=== PATIENT | male | born 1945 | race Two or more races ===

== ENCOUNTER 2019-02-10 00:37 | Emergency (ER) | payer MEDICARE, MEDICAID ==
[~2019-02-10] VITALS: Ht 167.6 cm; Wt 77.2 kg
[~2019-02-10 00:37] MED LIST: ASPI-496 PO; GABA600T7 PO; INSULIN; LINA5TAB PO; METF500T17 PO
[2019-02-10 00:41] VITALS: BP 187/89
--- NOTE | 2019-02-10 01:03 | NUR ---
THIS 73 YOM TRIPPED AND FELL WHILE WALKING DOWNTOWN W/ FAMILY. PT DENIES LOC, DENIES N/V.
[2019-02-10] MEDS ORDERED: DIPH,PERTUSS(ACELL),TET VAC/PF 0.5 ML IM-VACC ONE ×2 (01:29→01:30)
[2019-02-10] MEDS ORDERED: LIDOCAINE 1%-EPI 1:100K, 20ML ONE ×2 (01:29→01:48)
[2019-02-10] MEDS ORDERED: LIDOCAINE 1%-EPI 1:100K, 20ML INFIL ONE (01:30)
--- NOTE | 2019-02-10 01:32 | NUR ---
PT CURRENTLY IN CT
--- NOTE | 2019-02-10 02:17 | NUR ---
PT GIVEN TDAP VACCINE ORDERED. TECH AT BEDSIDE TO IRRIGATE WOUND. PT PROVIDED W/ WARM BLANKET.
[2019-02-10] MEDS ORDERED: NEOSPORIN OINT. PKT 1 PACKET ONE (02:54)
[2019-02-10] MEDS ORDERED: NEOSPORIN OINT. PKT 1 PACKET TP STA (03:00)
[2019-02-10] MEDS ORDERED: ACETAMINOPHEN 325 MG TABLET PO ONE (03:00)
== END 2019-02-10 03:11 | disposition home or self-care (01) ==
LOC: ED 02:55
DX: S01.111A Laceration without foreign body of right eyelid and periocular area, initial encounter (principal); S02.2XXA Fracture of nasal bones, initial encounter for closed fracture; S08.0XXA Avulsion of scalp, initial encounter; W01.0XXA Fall on same level from slipping, tripping and stumbling without subsequent striking against object, initial encounter; Y93.01 Activity, walking, marching and hiking; Y92.413 State road as the place of occurrence of the external cause; Y99.8 Other external cause status
CPT/HCPCS: 12053; 70450; 72125; 90471; 90715; 99285; J3490

== ENCOUNTER 2020-05-20 07:21 | Emergency (ER) | payer MEDICARE, MEDICAID ==
[~2020-05-20] VITALS: Ht 170.2 cm; Wt 75.0 kg
[2020-05-20] MEDS ORDERED: SODIUM CHLORIDE FLUSH 10ML SYR IVF ONE (08:00)
[2020-05-20 08:10] LABS: BASOPHILS % (AUTO) 1 % (0-1); EOSINOPHILS % (AUTO) 1 % (1-7); LYMPHOCYTES % (AUTO) 5 % (22-44); MEAN CORPUSCULAR HEMOGLOBIN 30.3 pg (27.5-34.5); MEAN CORPUSCULAR HGB CONC 32.6 g/dL (33.2-36.2); MEAN PLATELET VOLUME 8.5 fL (7.4-10.4); MONOCYTES % (AUTO) 7 % (2-9); NEUTROPHILS % (AUTO) 86 % (42-75); PLATELET COUNT 253 x10^3/uL (130-400); RED BLOOD COUNT 4.99 x10^6/uL (4.38-5.82); RED CELL DISTRIBUTION WIDTH 13.7 % (9.4-14.8)
[2020-05-20] MEDS ORDERED: LIDOCAINE 2%,20 ML JEL.PF.APP MM ONE (08:14)
[2020-05-20 08:19] LABS: ALBUMIN 3.9 g/dL (3.4-5.0); ANION GAP 6 mmol/L (5-15); CHLORIDE 109 mmol/L (98-107); CREATININE 1.01 mg/dL (0.7-1.3); INTERNATIONAL NORMALIZED RATIO 1.02 (0.93-1.1); PROTHROMBIN TIME 10.9 Seconds (9.6-11.5)
[2020-05-20 08:54] LABS: MICROSCOPIC INDICATED
--- NOTE | 2020-05-20 09:15 | NUR ---
SEE FOLY INSERTION NOTE. BLADDER IRRIGATION CONTINUES WITH PT TOLERATING WELL. NO CLOTS NOTED
--- NOTE | 2020-05-20 09:46 | NUR ---
RE-MANJINDER. URO TO BE PAGED. SON AT BEDSIDE.
[2020-05-20] MEDS ORDERED: OMNIPAQUE 350 MG/ML, 150 ML BOTTLE ONE (11:15)
--- NOTE | 2020-05-20 11:30 | NUR ---
PROVIDED LUNCH TRAY. BLADDER IRRIGATION CONTINUES
[2020-05-20 12:22] VITALS: BP 134/74
--- NOTE | 2020-05-20 13:16 | NUR ---
AFTER CATHETER REMOVED DISCHARGE PAPERS GIVEN. PT AMBULATED TO BATHROOM AND THEN TO DISCHARGE WINDOW.
[2020-05-21] MEDS ORDERED: GLIP5TAB10 PO (23:13)
[2020-05-21] MEDS ORDERED: ATOR10TA9 PO (23:13)
[2020-05-21] MEDS ORDERED: EMPA10TA PO (23:13)
[2020-05-27] MEDS ORDERED: DILT120C2 PO (13:24)
[2020-05-27] MEDS ORDERED: TAMS-11 PO (13:24)
[2020-05-27] MEDS ORDERED: CEPH-376 PO (13:24)
== END 2020-05-20 13:18 | disposition home or self-care (01) ==
LOC: ED 12:15
DX: R31.0 Gross hematuria (principal); R30.0 Dysuria; I10 Essential (primary) hypertension; E11.9 Type 2 diabetes mellitus without complications
CPT/HCPCS: 36415; 51702; 74178; 80048; 81001; 82040; 85025; 85610; 86850; 86900; 99285; Q9967

== ENCOUNTER 2020-05-31 09:32 | Emergency (ER) | payer MEDICARE, MEDICAID ==
[~2020-05-31] VITALS: Ht 170.2 cm; Wt 72.1 kg
[~2020-05-31 09:32] MED LIST changes: +ATOR10TA9 PO; +CEPH-376 PO; +DILT120C2 PO; +EMPA10TA PO; +GLIP5TAB10 PO; +TAMS-11 PO
--- NOTE | 2020-05-31 10:01 | NUR ---
THIS IS A 74 YO M W/ C/O PENILE SWELLING STARTING FRIDAY. PT WAS DC FROM INPATIENT AT THIS FACILITY ON 05/27. DURING THIS VISIT A GRIFFITH CATH WAS PLACED POSSIBLY FOR URINARY RETENTION. PT REPORTS WAS SEEN BY PCP YESTERDAY AND TOLD TO COME TO ED IF PAIN AND SWELLING PERSISTS. SWELLING OF GLANS OBSERVED, NO REDNESS NOTED. GRIFFITH DRAINING URINE, NO OBSTRUCTION IDENTIFIED. PT RESTING ON GURNEY W/ CALL LIGHT IN REACH AND SIDE RAILS UPX2. RESP EVEN AND UNLABORED, NADN. AWAITING ED EVAL. FAMILY AT BEDSIDE.
[2020-05-31] MEDS ORDERED: ACETAMINOPHEN 325 MG TABLET PO ONE (10:30)
[2020-05-31] MEDS ORDERED: ACETAMINOPHEN 325 MG TABLET ONE (10:32)
[2020-05-31 10:42] LABS: MICROSCOPIC INDICATED
[2020-05-31 10:47] LABS: BASOPHILS % (AUTO) 1 % (0-1); EOSINOPHILS % (AUTO) 2 % (1-7); LYMPHOCYTES % (AUTO) 13 % (22-44); MEAN CORPUSCULAR HEMOGLOBIN 30.4 pg (27.5-34.5); MEAN CORPUSCULAR HGB CONC 33.5 g/dL (33.2-36.2); MEAN PLATELET VOLUME 7.9 fL (7.4-10.4); MONOCYTES % (AUTO) 6 % (2-9); NEUTROPHILS % (AUTO) 78 % (42-75); PLATELET COUNT 381 x10^3/uL (130-400); RED BLOOD COUNT 4.52 x10^6/uL (4.38-5.82); RED CELL DISTRIBUTION WIDTH 13.8 % (9.4-14.8)
[2020-05-31 10:54] LABS: MD NO
[2020-05-31 10:58] LABS: ALBUMIN 3.4 g/dL (3.4-5.0); ANION GAP 6 mmol/L (5-15); CALCIUM 9.2 mg/dL (8.5-10.1); CHLORIDE 104 mmol/L (98-107); CREATININE 1.08 mg/dL (0.7-1.3)
--- NOTE | 2020-05-31 11:00 | NUR ---
PT MEDICATED PER EMAR. RESTING ON GURNEY W/ CALL LIGHT IN REACH , SIDE RAILS UPX2 AND FAMILY AT BEDSIDE. GAYLE, DERECK.
--- NOTE | 2020-05-31 11:04 | NUR ---
ALL TESTS RESULTED. PT IS UP FOR RECHECK AT THIS TIME.
[2020-05-31 11:20] VITALS: BP 124/70
--- NOTE | 2020-05-31 11:28 | NUR ---
dr bell spoke with dr lui
--- NOTE | 2020-05-31 12:05 | NUR ---
Patient and Spouse given discharge instructions and they have confirmed that they understand the instructions. Patient wheeled to dc desk per pt request. Pt transfered to wheelchair w/o incident. Resp even and unlabored, giovanni.
== END 2020-05-31 12:06 | disposition home or self-care (01) ==
LOC: ED 10:43
DX: T83.84XA Pain due to genitourinary prosthetic devices, implants and grafts, initial encounter (principal); E11.9 Type 2 diabetes mellitus without complications; I48.91 Unspecified atrial fibrillation
CPT/HCPCS: 36415; 80048; 81001; 82040; 85025; 99283

== ENCOUNTER 2020-06-05 13:13 | Emergency (ER) | payer MEDICARE, MEDICAID ==
[~2020-06-05] VITALS: Ht 170.2 cm; Wt 72.0 kg
--- NOTE | 2020-06-05 13:37 | NUR ---
BREAK RN: THIS IS A [place] SPEAKING 74 YEAR OLD MALE WHO WAS BIB AMBULANCE DUE TO GRIFFITH CATH PAIN AND PENIS SWELLING. PT HAS DARK BLOOD IN URINE, PENIS SWOLLEN AND RED. PT ALSO C/O OF ANDERSON. PLACED PATIENT ON CONTINOUS SP02 95% RA, AND CYCLE VS. AWAIT MD FOR ORDERS
--- NOTE | 2020-06-05 14:31 | NUR ---
[employer] services in use. Pt reports UTI was initial reason for cath placement, it was then d/c'd and the pt had retention so the cath was replaced. Pt has a urology appointment on Friday. Pt reports bloody urine starting last night. Pt also complains of penial pain.
[2020-06-05 14:45] LABS: BASOPHILS % (AUTO) 1 % (0-1); EOSINOPHILS % (AUTO) 1 % (1-7); LYMPHOCYTES % (AUTO) 11 % (22-44); MEAN CORPUSCULAR HEMOGLOBIN 30.1 pg (27.5-34.5); MEAN CORPUSCULAR HGB CONC 32.6 g/dL (33.2-36.2); MEAN PLATELET VOLUME 8.3 fL (7.4-10.4); MONOCYTES % (AUTO) 7 % (2-9); NEUTROPHILS % (AUTO) 80 % (42-75); PLATELET COUNT 371 x10^3/uL (130-400); RED CELL DISTRIBUTION WIDTH 13.6 % (9.4-14.8)
[2020-06-05] MEDS ORDERED: LIDOCAINE 2%,20 ML JEL.PF.APP MM ONE ×2 (14:47→15:00)
[2020-06-05 14:53] LABS: MD NO
[2020-06-05 14:55] LABS: ALBUMIN 3.2 g/dL (3.4-5.0); ANION GAP 5 mmol/L (5-15); CALCIUM 8.6 mg/dL (8.5-10.1); CHLORIDE 109 mmol/L (98-107); CREATININE 0.82 mg/dL (0.7-1.3)
--- NOTE | 2020-06-05 15:28 | NUR ---
Pt's penis swollen. Pt tolerated cath reinsertion well. Leg locking device placed on opposite leg.
[2020-06-05 16:21] LABS: MICROSCOPIC INDICATED
--- NOTE | 2020-06-05 16:32 | NUR ---
This RN at bedside to hand irrigate bladder.
--- NOTE | 2020-06-05 17:59 | NUR ---
Urine returned to bloody after successful hand irrigation to clear. MD Hutchinson made aware, POC remains to d/c. Pt and spouse given d/c instructions and all questions answered.
[2020-06-05 18:01] VITALS: BP 115/70
--- NOTE | 2020-06-05 18:08 | NUR ---
Pt given theraworks to take home and given extensive education about cleaning, and not touching catheter.
== END 2020-06-05 18:03 | disposition home or self-care (01) ==
LOC: ED 17:57
DX: N30.01 Acute cystitis with hematuria (principal); E11.9 Type 2 diabetes mellitus without complications; I48.91 Unspecified atrial fibrillation; Z87.891 Personal history of nicotine dependence
CPT/HCPCS: 36415; 51702; 80048; 81001; 82040; 85025; 87077; 87086; 87186; 99284

== ENCOUNTER 2020-06-23 08:57 | Outpatient (CLI) | payer MEDICARE, MEDICAID | END 2020-06-23 23:59 | disposition home or self-care (01) | LOC: LAB 08:57 | PROVIDERS: ATTEND Physician Assistant | DX: Z12.5 Encounter for screening for malignant neoplasm of prostate (principal) | CPT/HCPCS: 36415; 84153; 84154 ==

== ENCOUNTER 2020-08-18 16:46 | Emergency (ER) | payer MEDICARE, MEDICAID ==
[~2020-08-18] VITALS: Ht 170.2 cm; Wt 73.8 kg
[2020-08-18 16:53] VITALS: BP 141/69
--- NOTE | 2020-08-18 17:05 | NUR ---
VAs DONE BY RESIDENTIAL LIFE DIRECTOR.
[2020-08-18] MEDS ORDERED: FLUORESCEIN OPHTHALMIC 1 MG STRIP EACHEYE ONE (18:30)
[2020-08-18] MEDS ORDERED: PROPARACAINE OPHTH 0.5%, 15ML EACHEYE ONE (18:30)
--- NOTE | 2020-08-18 18:32 | NUR ---
ERPA AT BEDSIDE WITH ROUTE DRIVER [employer] MACHINES TO ASSESS PT.
--- NOTE | 2020-08-18 18:56 | NUR ---
ERPA DOESN'T NEED THE MEDS ORDERED.
== END 2020-08-18 18:58 | disposition home or self-care (01) ==
LOC: ED 18:50
DX: H11.31 Conjunctival hemorrhage, right eye (principal); E11.9 Type 2 diabetes mellitus without complications; I48.91 Unspecified atrial fibrillation
CPT/HCPCS: 99282